=== PATIENT | female | born 1975 | race Two or more races ===

== ENCOUNTER 2020-08-11 00:10 | Emergency (ER) | payer MEDICAID, OTHER ==
[~2020-08-11] VITALS: Ht 157.5 cm; Wt 79.4 kg
[2020-08-11] MEDS ORDERED: SODIUM CHLORIDE 0.9% 1,000 ML IV ONE (01:00)
[2020-08-11] MEDS ORDERED: diphenhdrAMINE HCL 50 MG/1 ML VL IV ONE (01:00)
[2020-08-11] MEDS ORDERED: methylPREDNISolone SOD SUCC 125 MG/2 ML VL IV ONE (01:00)
[2020-08-11 02:43] VITALS: BP 112/62
== END 2020-08-11 05:40 | disposition home or self-care (01) ==
LOC: ER 00:17
DX: T78.1XXA Other adverse food reactions, not elsewhere classified, initial encounter (principal); X58.XXXA Exposure to other specified factors, initial encounter
CPT/HCPCS: 70490; 96361; 96374; 96375; 99284; J1200; J2930